=== PATIENT | male | born 1960 | race Caucasian/White ===

== ENCOUNTER 2016-09-25 16:32 | Emergency (ER) | payer OTHER ==
[2016-09-25 16:38] VITALS: BP 129/87; BMI 38.6
--- NOTE | 2016-09-25 17:05 | DR.GENAD ---
HPI - PCP Primary Care Physician: olga - Complaint/Symptoms Chief Complaint Doctors Comments: He takes lasix 20mg daily. He admits to right lower back with pain that radiates down right leg. He is on pain medication. Chief Complaint:: patient stated he has not urinated in 14 hours, kidneys hurting the same time. - Source History Provided: Patient - Mode of Arrival Mode of Arrival: Ambulatory - Timing Onset of Chief Complaint: 09/25/16 PMH - PMH Past Medical History: Yes Past Medical History: Arthritis, COPD, Coronary Artery Disease, Diabetes, Dyslipidemia, Hypertension Past Surgical History: Yes Surgical History: Angioplasty/Stents, CABG/Valve Surgery - Family History History of Family Medical Conditions: No - Social History Does patient currently use any type of tobacco product: Yes Have you used tobacco products in the last 12 months: Yes Type of Tobacco Use: Cigarettes How many years tobacco product used: 42 Does any household member use tobacco: No Alcohol Use: None Do you use any recreational Drugs:: No Lives With: Family Lives Where: Home - infectious screening In the last 2 months have you had wt loss of >10#?: NO Have you had fever, night sweats or hemotysis?: No Have you traveled outside the country in the last 6 months?: No Isolation: Standard ROS - Review of Systems Eyes: No Symptoms Reported ENTM: No Symptoms Reported, Hearing Loss Respiratoy: No Symptoms Reported Cardiovascular: No Symptoms Reported Gastrointestinal/Abdominal: No Symptoms Reported Genitourinary: No Symptoms Reported Neurological: No Symptoms Reported Musculoskeletal: No Symptoms Reported Integumentary: No Symptoms Reported Hematologic/Lymphatic: No Symptoms Reported Endocrine: No Symptoms Reported Psychiatric: No Symptoms Reported All Other Systems: Reviewed and Negative PE - Vital Signs Vitals: Temperature 98.6 F Pulse Rate 74 Respiratory Rate 18 Blood Pressure [Right Arm] 191/115 Blood Pressure [Left Arm] 151/92 Blood Pressure 129/87 O2 Sat by Pulse Oximetry 100 - General Limitations: No Limitations General Appearance: Alert, In No Apparent Distress - Head Head Exam: Normal Inspection, Atraumatic - Eyes Eye exam: Normal Appearance, PERRL, EOMI - ENT ENT Exam: Normal Exam External Ear Exam: Normal External Inspection TM/Canal Exam: Bilateral Normal Nose Exam: Normal Nose Exam Mouth Exam: Normal Inspection Throat Exam: Normal Inspection - Neck Neck Exam: Normal Inspection - Chest Chest Inspection: Normal Inspection - Respiratory Respiratory Exam: Normal Lung Sounds Bilat Respiratory Exam: Bilateral Clear to Auscultation - Cardiovascular Cardiovascular Exam: Regular Rate - Abdominal Exam Abdominal Exam: Normal Inspection Abdominal Tenderness: negative: RUQ, RLQ, LUQ, LLQ, Epigastrium, Suprapubic, Diffuse, Mild, Moderate, Severe, Other - Extremities Extremities Exam: Normal Inspection - Back Back Exam: Normal Inspection - Neurologic Neurological Exam: Alert, Oriented X3, CN II-XII Intact - Psychiatric Psychiatric Exam: Normal Affect - Skin Skin Exam: Warm, Dry Course - Reevaluation 1st: Improved ROR - Labs Reviewed Result Diagrams: 09/25/16 17:14 09/25/16 17:14 Laboratory: WBC 17.1 X10^3/uL (3.6-10.0) H 09/25/16 17:14 RBC 4.51 X10^6/uL (4.7-6.0) L 09/25/16 17:14 Hgb 13.8 g/dL (13.5-18.0) 09/25/16 17:14 Hct 41.2 % (42.0-54.0) L 09/25/16 17:14 MCV 91.4 fL (80.0-100.0) 09/25/16 17:14 MCH 30.7 pg (27.0-34.0) 09/25/16 17:14 MCHC 33.6 g/dL (33.0-35.0) 09/25/16 17:14 RDW 16.3 % (11.6-16.5) 09/25/16 17:14 Plt Count 196 X10^3/uL (150.0-450.0) 09/25/16 17:14 MPV 8.2 fL (7.4-11.0) 09/25/16 17:14 Neut % 59.4 % (42.0-75.0) 09/25/16 17:14 Lymph % 16.6 % (21.0-51.0) L 09/25/16 17:14 [place] % 5.8 % (0.0-13.0) 09/25/16 17:14 Eos % 17.7 % (0.9-2.9) H 09/25/16 17:14 Baso % 0.5 % (0.2-1.0) 09/25/16 17:14 Neut # 10.2 x10^3/uL (2.2-4.8) H 09/25/16 17:14 Lymph # 2.8 X10^3/uL (1.3-2.9) 09/25/16 17:14 [place] # 1.0 x10^3/uL (0.3-0.8) H 09/25/16 17:14 Eos # 3.0 x10^3/uL (0.0-0.2) H 09/25/16 17:14 Baso # 0.1 X10^3/uL (0.0-0.1) 09/25/16 17:14 Absolute Nucleated RBC 0.0 /100WBC 09/25/16 17:14 Sodium 133 mmol/L (136-145) L 09/25/16 17:14 Corrected Sodium TNP 09/25/16 17:14 Potassium 4.2 mmol/L (3.5-5.1) 09/25/16 17:14 Chloride 101 mmol/L (98-107) 09/25/16 17:14 Carbon Dioxide 25.1 mmol/L (21-32) 09/25/16 17:14 BUN 25 mg/dL (7-18) H 09/25/16 17:14 Creatinine 2.54 mg/dL (0.70-1.30) H 09/25/16 17:14 Est GFR (MDRD) Af Amer 34 (>60) L 09/25/16 17:14 Est GFR (MDRD) Non-Af 28 (>60) L 09/25/16 17:14 Glucose 100 mg/dL (65-99) H 09/25/16 17:14 Calcium 8.4 mg/dL (8.5-10.1) L 09/25/16 17:14 Corrected Calcium TNP 09/25/16 17:14 Total Bilirubin 0.30 mg/dL (0.2-1.0) 09/25/16 17:14 AST 18 Units/L (15-37) 09/25/16 17:14 ALT 19 Units/L (12-78) 09/25/16 17:14 Alkaline Phosphatase 58 Units/L (46-116) 09/25/16 17:14 Total Protein 6.5 g/dL (6.4-8.2) 09/25/16 17:14 Albumin 3.4 g/dL (3.4-5.0) 09/25/16 17:14 Globulin 3.1 g/dL (2.5-4.5) 09/25/16 17:14 Albumin/Globulin Ratio 1.1 Ratio (1.1-2.1) 09/25/16 17:14 - XRAY XRAY Interpreted by: Radiologist (Chest: stable cardiomegaly) - Diagnosis Discharge Problem: History of decreased renal function Chronic back pain Qualifiers: Back pain location: back pain in other location Qualified Code(s): M54.9 - Dorsalgia, unspecified; G89.29 - Other chronic pain - Discharge Plan Condition: Stable - Follow ups/Referrals Follow ups/Referrals: KODY ANDERSON [Primary Care Provider] - 3 days - Instructions
[2016-09-25 17:22] LABS: BASOPHILS # (AUTO) 0.1 X10^3/uL (0.0-0.1); BASOPHILS % (AUTO) 0.5 % (0.2-1.0); EOSINOPHILS % (AUTO) 17.7 % (0.9-2.9); HEMATOCRIT 41.2 % (42.0-54.0); HEMOGLOBIN 13.8 g/dL (13.5-18.0); LYMPHOCYTES # (AUTO) 2.8 X10^3/uL (1.3-2.9); LYMPHOCYTES % (AUTO) 16.6 % (21.0-51.0); MEAN CORPUSCULAR HEMOGLOBIN 30.7 pg (27.0-34.0); MEAN CORPUSCULAR HGB CONC 33.6 g/dL (33.0-35.0); MEAN CORPUSCULAR VOLUME 91.4 fL (80.0-100.0); MEAN PLATELET VOLUME 8.2 fL (7.4-11.0); MONOCYTES % (AUTO) 5.8 % (0.0-13.0); NEUTROPHILS # (AUTO) 10.2 x10^3/uL (2.2-4.8); NEUTROPHILS % (AUTO) 59.4 % (42.0-75.0); PLATELET COUNT 196 X10^3/uL (150.0-450.0); RED BLOOD COUNT 4.51 X10^6/uL (4.7-6.0); RED CELL DISTRIBUTION WIDTH 16.3 % (11.6-16.5); WHITE BLOOD COUNT 17.1 X10^3/uL (3.6-10.0)
[2016-09-25 17:32] LABS: ALANINE AMINOTRANSFERASE 19 Units/L (12-78); ALBUMIN 3.4 g/dL (3.4-5.0); ALKALINE PHOSPHATASE 58 Units/L (46-116); ASPARTATE AMINO TRANSFERASE 18 Units/L (15-37); BLOOD UREA NITROGEN 25 mg/dL (7-18); CALCIUM 8.4 mg/dL (8.5-10.1); CARBON DIOXIDE 25.1 mmol/L (21-32); CHLORIDE 101 mmol/L (98-107); CREATININE 2.54 mg/dL (0.70-1.30); GLUCOSE 100 mg/dL (65-99); SODIUM 133 mmol/L (136-145); TOTAL PROTEIN 6.5 g/dL (6.4-8.2); eGFR BLACK RACES 34 (>60); eGFR NON BLACK RACES 28 (>60)
--- NOTE | 2016-09-25 17:36 | RAD ---
HISTORY: Rib pain Study: Two view chest Comparison: 03/17/2016 Findings: Chronic sternotomy changes are noted. The lungs are clear without consolidation, effusion or pneumot horax. Stable cardiomegaly. The soft tissues are unremarkable. IMPRESSION: 1. Stable cardiomegaly without acute findings. Reported By:
== END 2016-09-25 18:17 | disposition home or self-care (01) ==
LOC: ER 16:40
DX: M54.5 Low back pain (principal); G89.29 Other chronic pain; R94.4 Abnormal results of kidney function studies; I51.7 Cardiomegaly
CPT/HCPCS: 36415; 71020; 80053; 85025; 99282

== ENCOUNTER 2016-10-04 10:46 | Day surgery (SDC) | payer OTHER ==
[2016-10-04] MEDS: D5 LR 1000 ML 1,000 ML IV ONE (11:23)
[2016-10-04] MEDS ORDERED: DIPRIVAN VIAL 20 ML ONE ×3 (12:56→13:19)
[2016-10-04] MEDS ORDERED: DIPRIVAN VIAL 10 ML ONE ×2 (13:18→13:46)
[2016-10-04 14:16] VITALS: BP 134/79
== END 2016-10-04 14:25 | disposition home or self-care (01) ==
LOC: SURG1 10:46
PROVIDERS: ATTEND Internal Medicine
PROC: 0DB38ZX Excision of Lower Esophagus, Via Natural or Artificial Opening Endoscopic, Diagnostic (ICD-10-PCS; principal; 2016-10-04 12:00)
PROC: 0DJ08ZZ Inspection of Upper Intestinal Tract, Via Natural or Artificial Opening Endoscopic (ICD-10-PCS; principal; 2016-10-04 12:00)
PROC: 0DBN8ZX Excision of Sigmoid Colon, Via Natural or Artificial Opening Endoscopic, Diagnostic (ICD-10-PCS; principal; 2016-10-04 12:00)
PROC: 0DB68ZX Excision of Stomach, Via Natural or Artificial Opening Endoscopic, Diagnostic (ICD-10-PCS; principal; 2016-10-04 12:00)
PROC: 0DJD8ZZ Inspection of Lower Intestinal Tract, Via Natural or Artificial Opening Endoscopic (ICD-10-PCS; principal; 2016-10-04 12:00)
DX: R10.84 Generalized abdominal pain (principal); K63.3 Ulcer of intestine; K21.9 Gastro-esophageal reflux disease without esophagitis; R10.13 Epigastric pain; K44.9 Diaphragmatic hernia without obstruction or gangrene; K20.8 Other esophagitis; K29.60 Other gastritis without bleeding; K25.9 Gastric ulcer, unspecified as acute or chronic, without hemorrhage or perforation
CPT/HCPCS: A4217; J3490; J7120

== ENCOUNTER 2016-12-30 10:39 | Observation (INO) | payer OTHER ==
[2016-12-30 10:58] VITALS: BMI 39.0
[2016-12-30] MEDS ORDERED: ZOFRAN INJ 4 MG VIAL ONE ×2 (11:28→14:26)
[2016-12-30] MEDS ORDERED: NIFEDIPINE CAP 10 MG ONE (11:28)
[2016-12-30] MEDS ORDERED: LASIX IVP ONE (11:28)
[2016-12-30] MEDS ORDERED: ASPIRIN 81 MG CHEWTAB ONE ×2 (11:28→11:33)
[2016-12-30] MEDS: LASIX IVP SCH ×2 (11:29→20:59)
[2016-12-30] MEDS ORDERED: MORPHINE SULFATE INJ 4 MG ONE (11:29)
[2016-12-30] MEDS ORDERED: MORPHINE SULFATE INJ 4 MG IVP ONE (13:30)
[2016-12-30] MEDS ORDERED: NIFEDIPINE CAP 10 MG PO ONE (13:30)
[2016-12-30] MEDS ORDERED: ZOFRAN INJ 4 MG VIAL IVP ONE ×2 (13:32→14:28)
--- NOTE | 2016-12-30 13:32 | DR.GENAD ---
HPI - PCP Primary Care Physician: Gene - HPI Comment HPI Comment: PATIENT TOOK HOME MED BUT STILL NO RESPONSE. LOW O2 SAT NOTED. ALSO SEVERE HEADACHE. BP ELEVATED. TOOK MEDS BEFORE COMING. - Complaint/Symptoms Chief Complaint Doctors Comments: EDEMA, SOB, CHEST PAIN THAT IS WORSE TODAY. Chief Complaint:: "My legs were retaining fluid. I was also having pain in my chest and accross the top of my head and in my legs and my back. I was supposed to do a heart cath in Jan." - Nurses notes reviewed Nurses Notes Review: Yes - Source History Provided: Patient, Family Member - Mode of Arrival Mode of Arrival: Stretcher - Timing Onset of Chief Complaint: 12/30/16 Came on: Gradually - Duration Duration: Constant Duration: Days - Severity Severity: Moderate PMH - PMH Past Medical History: Yes Past Medical History: Arthritis, COPD, Coronary Artery Disease, Diabetes, Dyslipidemia, Hypertension Past Surgical History: Yes Surgical History: Other Past Surgical History Comment: Bypass, Stents x2 - Family History History of Family Medical Conditions: Yes Family Medical History: [place], Hypertension - Social History Does patient currently use any type of tobacco product: Yes Have you used tobacco products in the last 12 months: Yes Type of Tobacco Use: Cigarettes Does any household member use tobacco: No Alcohol Use: None Do you use any recreational Drugs:: No Lives With: Spouse Lives Where: Home - infectious screening In the last 2 months have you had wt loss of >10#?: NO Have you had fever, night sweats or hemotysis?: No Have you traveled outside the country in the last 6 months?: No Isolation: Standard ROS - Review of Systems Constitutional: Weakness, Fatigue. negative: Chills, Fever Eyes: negative: Eye Pain, Discharge ENTM: negative: Ear Pain, Nose Discharge, Nose Congestion, Throat Pain Respiratoy: Productive Cough, Short of Breath, Wheezing Cardiovascular: Chest Pain, Edema Gastrointestinal/Abdominal: Nausea. negative: Abdominal Pain, Diarrhea, Vomiting Genitourinary: No Symptoms Reported. negative: Dysuria, Frequency, Hematuria Neurological: Headache, Weakness, Dizziness Musculoskeletal: Back Pain, Back Integumentary: Change in Color Hematologic/Lymphatic: Easy Bleeding, Easy Bruising Endocrine: No Symptoms Reported All Other Systems: Reviewed and Negative PE - Vital Signs Vitals: Temperature 97.8 F Pulse Rate [Right Brachial] 92 Pulse Rate 79 Respiratory Rate 18 Blood Pressure [Right Arm] 191/115 Blood Pressure [Left Arm] 199/108 Blood Pressure 230/137 O2 Sat by Pulse Oximetry 99 - General Limitations: No Limitations General Appearance: Alert, In Distress - Head Head Exam: Normal Inspection - Eyes Eye exam: Normal Appearance, PERRL, EOMI - ENT ENT Exam: Normal External Ear Exam External Ear Exam: Normal External Inspection TM/Canal Exam: Bilateral Normal Nose Exam: Normal Nose Exam Mouth Exam: Normal Inspection Throat Exam: Normal Inspection - Neck Neck Exam: Normal Inspection, Trachea Midline - Chest Chest Inspection: Symmetric Chest Wall Rise - Respiratory Respiratory Exam: Normal Lung Sounds Bilat Respiratory Exam: Bilateral Wheezing, Bilateral Rales, Bilateral Rhonchi, Upper Wheezing, Upper Rhonchi, Lower Wheezing, Lower Rales, Lower Rhonchi - Cardiovascular Cardiovascular Exam: Regular Rate, Normal Rhythm, Normal Heart Sounds - Abdominal Exam Abdominal Exam: Normal Bowel Sounds, Soft. negative: Tenderness - Extremities Extremities Exam: Edema - Back Back Exam: Normal Inspection - Neurologic Neurological Exam: Alert, Oriented X3 - Skin Skin Exam: Erythema MDM - Additional Information Additional Information Obtained From: Family - Differential Diagnosis Differential Diagnosis: CHF, PNEUMONIA, PE, BRONCHITIS Course - Treatment Treatment: SEE ORDERS - Reevaluation 1st: Improved (WITH IV LASIX.) - Education/Counseling Education/Counseling: Patient, Family, Education Educated On: Treatment, Diagnosis, Needs for Follow Up ROR - Labs Reviewed Laboratory Results Reviewed?: Yes Result Diagrams: 12/31/16 04:00 12/31/16 04:00 Laboratory: WBC 12.2 X10^3/uL (3.6-10.0) H 12/30/16 10:55 RBC 4.87 X10^6/uL (4.7-6.0) 12/30/16 10:55 Hgb 14.4 g/dL (13.5-18.0) 12/30/16 10:55 Hct 42.9 % (42.0-54.0) 12/30/16 10:55 MCV 88.2 fL (80.0-100.0) 12/30/16 10:55 MCH 29.6 pg (27.0-34.0) 12/30/16 10:55 MCHC 33.6 g/dL (33.0-35.0) 12/30/16 10:55 RDW 16.8 % (11.6-16.5) H 12/30/16 10:55 Plt Count 253 X10^3/uL (150.0-450.0) 12/30/16 10:55 MPV 9.2 fL (7.4-11.0) 12/30/16 10:55 Neut % 56.6 % (42.0-75.0) 12/30/16 10:55 Lymph % 30.3 % (21.0-51.0) 12/30/16 10:55 [place] % 9.9 % (0.0-13.0) 12/30/16 10:55 Eos % 1.8 % (0.9-2.9) 12/30/16 10:55 Baso % 1.4 % (0.2-1.0) H 12/30/16 10:55 Neut # 6.9 x10^3/uL (2.2-4.8) H 12/30/16 10:55 Lymph # 3.7 X10^3/uL (1.3-2.9) H 12/30/16 10:55 [place] # 1.2 x10^3/uL (0.3-0.8) H 12/30/16 10:55 Eos # 0.2 x10^3/uL (0.0-0.2) 12/30/16 10:55 Baso # 0.2 X10^3/uL (0.0-0.1) H 12/30/16 10:55 Absolute Nucleated RBC 0.0 /100WBC 12/30/16 10:55 INR Target Range - 12/30/16 10:55 INR 0.93 (0.8-1.3) 12/30/16 10:55 PTT 26.9 SECONDS (22.9-36.5) 12/30/16 10:55 PTT Comment - 12/30/16 10:55 Sodium 143 mmol/L (136-145) 12/30/16 10:55 Corrected Sodium 143 mmol/L (136-145) 12/30/16 10:55 Potassium 3.6 mmol/L (3.5-5.1) 12/30/16 10:55 Chloride 107 mmol/L (98-107) 12/30/16 10:55 Carbon Dioxide 27.6 mmol/L (21-32) 12/30/16 10:55 BUN 18 mg/dL (7-18) 12/30/16 10:55 Creatinine 1.44 mg/dL (0.70-1.30) H 12/30/16 10:55 Est GFR (MDRD) Af Amer > 60 (>60) 12/30/16 10:55 Est GFR (MDRD) Non-Af 54 (>60) L 12/30/16 10:55 Glucose 115 mg/dL (65-99) H 12/30/16 10:55 Calcium 8.9 mg/dL (8.5-10.1) 12/30/16 10:55 Creatine Kinase 115 Units/L (39-308) 12/30/16 10:55 CK-MB (CK-2) 2.3 ng/mL (0-4.0) 12/30/16 10:55 CK/CKMB % Calc 2.0 % (<4) 12/30/16 10:55 Troponin I 0.08 ng/mL (0-1.5) 12/30/16 10:55 B-Natriuretic Peptide 122 pg/mL (0-79) H 12/30/16 10:55 Specimen Type Clean catch urine 12/30/16 11:19 Urine Color Yellow (YELLOW) 12/30/16 11:19 Urine Appearance Hazy (CLEAR) 12/30/16 11:19 Urine pH 6.5 (5.0 - 8.0) 12/30/16 11:19 Ur Specific [place] 1.010 (1.000-1.030) 12/30/16 11:19 Urine Protein 4+ (NEGATIVE) 12/30/16 11:19 Urine Glucose (UA) Negative (NEGATIVE) 12/30/16 11:19 Urine Ketones Negative (NEGATIVE) 12/30/16 11:19 Urine Occult Blood Negative (NEGATIVE) 12/30/16 11:19 Urine Nitrite Negative (NEGATIVE) 12/30/16 11:19 Urine Bilirubin Negative (NEGATIVE) 12/30/16 11:19 Urine Urobilinogen Normal (NORMAL) 12/30/16 11:19 Ur Leukocyte Esterase Negative (NEGATIVE) 12/30/16 11:19 Urine RBC 0-1 /HPF (NEGATIVE) 12/30/16 11:19 Urine WBC 0-1 /HPF (NEGATIVE) 12/30/16 11:19 Ur Squamous Epith Cells Rare /HPF (NEGATIVE) 12/30/16 11:19 Urine Bacteria Negative /HPF (NEGATIVE) 12/30/16 11:19 Ur Culture Indicated? No/not indicated 12/30/16 11:19 - XRAY XRAY Interpreted by: Radiologist XRAY Findings: REPORT DISCUSS WITH PATIENT. - EKG Rhythm: NSR (EKG NOTED) - Diagnosis Discharge Problem: CHD (congenital heart disease), Respiratory distress Hypertension Qualifiers: Hypertension type: essential hypertension Qualified Code(s): I10 - Essential ( primary) hypertension - Discharge Plan Disposition: ADMITTED INPATIENT Condition: Stable - Follow ups/Referrals - Instructions
--- NOTE | 2016-12-30 13:37 | CT ---
CT brain without contrast Indication: Headache Comparison: None available Technique: Multiple axial images of the brain were obtained from the skull base to the vertex without administra tion of IV contrast. Coronal and sagittal images were also provided. Radiation dose reduction techniques were performed utilizing adjustment for MA/kVP based on patient body size. Findings: No acute intraparenchymal hemorrhage or mass can be identified. No extra-axial fluid collections are seen. No alteration in the attenuation of the brain parenchyma can be identified to suggest acute o r subacute ischemic change. The ventricular system is symmetric and nondilated. The extracranial st ructures are grossly unremarkable. IMPRESSION: 1. No acute intracranial process is identified. Reported By:
[2016-12-30 13:48] LABS: BASOPHILS # (AUTO) 0.2 X10^3/uL (0.0-0.1); BASOPHILS % (AUTO) 1.4 % (0.2-1.0); BLOOD UREA NITROGEN 18 mg/dL (7-18); CALCIUM 8.9 mg/dL (8.5-10.1); CARBON DIOXIDE 27.6 mmol/L (21-32); CHLORIDE 107 mmol/L (98-107); COR NA(FOR HYPERGLY) 143 mmol/L (136-145); CREATINE KINASE 115 Units/L (39-308); CREATINE KINASE MB 2.3 ng/mL (0-4.0); CREATININE 1.44 mg/dL (0.70-1.30); EOSINOPHILS # (AUTO) 0.2 x10^3/uL (0.0-0.2); EOSINOPHILS % (AUTO) 1.8 % (0.9-2.9); HEMATOCRIT 42.9 % (42.0-54.0); HEMOGLOBIN 14.4 g/dL (13.5-18.0); LYMPHOCYTES # (AUTO) 3.7 X10^3/uL (1.3-2.9); LYMPHOCYTES % (AUTO) 30.3 % (21.0-51.0); MEAN CORPUSCULAR HEMOGLOBIN 29.6 pg (27.0-34.0); MEAN CORPUSCULAR HGB CONC 33.6 g/dL (33.0-35.0); MEAN CORPUSCULAR VOLUME 88.2 fL (80.0-100.0); MEAN PLATELET VOLUME 9.2 fL (7.4-11.0); MONOCYTES # (AUTO) 1.2 x10^3/uL (0.3-0.8); MONOCYTES % (AUTO) 9.9 % (0.0-13.0); NEUTROPHILS # (AUTO) 6.9 x10^3/uL (2.2-4.8); NEUTROPHILS % (AUTO) 56.6 % (42.0-75.0); PLATELET COUNT 253 X10^3/uL (150.0-450.0); RED BLOOD COUNT 4.87 X10^6/uL (4.7-6.0); RED CELL DISTRIBUTION WIDTH 16.8 % (11.6-16.5); SODIUM 143 mmol/L (136-145); TROPONIN I 0.08 ng/mL (0-1.5); WHITE BLOOD COUNT 12.2 X10^3/uL (3.6-10.0); eGFR BLACK RACES > 60 (>60); eGFR NON BLACK RACES 54 (>60)
[2016-12-30 13:49] LABS: B-TYPE NATRIURETIC PEPTIDE 122 pg/mL (0-79)
[2016-12-30 13:52] LABS: APPEARANCE,URINE HAZY (CLEAR); BLOOD/HEMOGLOBIN,URINE NEGATIVE (NEGATIVE); COLOR,URINE YELLOW (YELLOW); GLUCOSE, URINE NEGATIVE (NEGATIVE); KETONES,URINE NEGATIVE (NEGATIVE); PH,URINE 6.5 (5.0 - 8.0)
[2016-12-30 13:53] LABS: BACTERIA,URINE NEGATIVE /HPF (NEGATIVE); BILIRUBIN,URINE NEGATIVE (NEGATIVE); LEUKOCYTE ESTERASE ,URINE NEGATIVE (NEGATIVE); NITRITES,URINE NEGATIVE (NEGATIVE); PROTEIN,URINE 4+ (NEGATIVE); RBC,URINE 0-1 /HPF (NEGATIVE); SQUAMOUS EPITHELIAL CELL,UR RARE /HPF (NEGATIVE); UROBILINOGEN,URINE NORMAL (NORMAL)
--- NOTE | 2016-12-30 13:58 | RAD ---
HISTORY: Shortness of breath Study: Chest AP portable Comparison: September 25, 2016 Findings: The patient is status post median sternotomy and CABG. The heart remains enlarged. Pulmonary venous c ongestion is present. No interstitial or alveolar pulmonary edema, alveolar infiltrates, or pleural e ffusions are identified. The bony thorax is unremarkable. IMPRESSION: Cardiomegaly with pulmonary venous congestion. No infiltrates Reported By:
[2016-12-30] MEDS ORDERED: ASPIRIN 81 MG CHEWTAB PO SCH (14:00)
[2016-12-30] MEDS ORDERED: DILAUDID INJ IVP ONE (14:20)
[2016-12-30] MEDS ORDERED: DILAUDID INJ ONE (14:22)
[2016-12-30] MEDS ORDERED: ROCEPHIN 1 GM IV PREMIX * OUT OF STOCK 50 ML IV ONE (14:41)
[2016-12-30] MEDS ORDERED: ROCEPHIN VIAL 1 GM 1 GM in NS 50 ML IV + SPIKE MINIBAG* 50 ML IV ONE (14:42)
[2016-12-30] MEDS ORDERED: CATAPRES TAB 0.2 MG PO ONE (16:33)
[2016-12-30] MEDS ORDERED: CATAPRES TAB 0.2 MG ONE (16:35)
[2016-12-30] MEDS: NICODERM PATCH 21 MG/24 HR TD SCH (18:11)
[2016-12-30 18:45] LABS: CKMB % 1.6 % (<4); CREATINE KINASE MB 1.8 ng/mL (0-4.0); TROPONIN I 0.08 ng/mL (0-1.5)
[2016-12-30] MEDS: NORCO 10/325 TAB PO PRN (20:59)
[2016-12-31 01:13] LABS: CREATINE KINASE MB 2.3 ng/mL (0-4.0); TROPONIN I 0.06 ng/mL (0-1.5)
[2016-12-31] MEDS: MORPHINE SULFATE INJ 2 MG INJ IVP PRN ×3 (01:14→11:08)
[2016-12-31] MEDS: VALIUM PO PRN ×3 (01:15→18:30)
[2016-12-31] MEDS ORDERED: CATAPRES TAB 0.2 MG PO ONE (03:46)
[2016-12-31 05:21] LABS: BASOPHILS # (AUTO) 0.1 X10^3/uL (0.0-0.1); BASOPHILS % (AUTO) 0.6 % (0.2-1.0); EOSINOPHILS # (AUTO) 0.3 x10^3/uL (0.0-0.2); EOSINOPHILS % (AUTO) 2.6 % (0.9-2.9); HEMATOCRIT 42.4 % (42.0-54.0); HEMOGLOBIN 14.4 g/dL (13.5-18.0); LYMPHOCYTES # (AUTO) 3.1 X10^3/uL (1.3-2.9); LYMPHOCYTES % (AUTO) 29.4 % (21.0-51.0); MEAN CORPUSCULAR HEMOGLOBIN 30.1 pg (27.0-34.0); MEAN CORPUSCULAR HGB CONC 33.9 g/dL (33.0-35.0); MEAN CORPUSCULAR VOLUME 88.6 fL (80.0-100.0); MEAN PLATELET VOLUME 9.3 fL (7.4-11.0); MONOCYTES % (AUTO) 9.4 % (0.0-13.0); NEUTROPHILS # (AUTO) 6.1 x10^3/uL (2.2-4.8); PLATELET COUNT 247 X10^3/uL (150.0-450.0); RED BLOOD COUNT 4.79 X10^6/uL (4.7-6.0); RED CELL DISTRIBUTION WIDTH 16.3 % (11.6-16.5); WHITE BLOOD COUNT 10.5 X10^3/uL (3.6-10.0)
[2016-12-31 05:28] LABS: ALANINE AMINOTRANSFERASE 20 Units/L (12-78); ALKALINE PHOSPHATASE 60 Units/L (46-116); ASPARTATE AMINO TRANSFERASE 19 Units/L (15-37); BLOOD UREA NITROGEN 17 mg/dL (7-18); CALCIUM 8.6 mg/dL (8.5-10.1); CARBON DIOXIDE 30.6 mmol/L (21-32); CHLORIDE 102 mmol/L (98-107); COR CA(FOR HYPOALB) 9.4 mg/dL (8.5-10.1); COR NA(FOR HYPERGLY) 141 mmol/L (136-145); CREATININE 1.43 mg/dL (0.70-1.30); MAGNESIUM 1.6 mg/dL (1.7-2.9); SODIUM 139 mmol/L (136-145); TOTAL PROTEIN 6.4 g/dL (6.4-8.2); eGFR BLACK RACES > 60 (>60); eGFR NON BLACK RACES 54 (>60)
[2016-12-31] MEDS: NICODERM PATCH 21 MG/24 HR TD SCH (09:15)
[2016-12-31] MEDS: LASIX IVP SCH ×2 (09:16→22:24)
[2016-12-31] MEDS: ECOTRIN TAB 325 MG PO SCH (09:16)
[2016-12-31] MEDS: NORCO 10/325 TAB PO PRN ×2 (09:20→18:30)
[2016-12-31] MEDS ORDERED: NORCO 10/325 TAB PO PRN (12:11)
[2016-12-31] MEDS ORDERED: PATIENT'S HOME MEDICATION (Escitalopram Oxalate [Lexapro 20 Mg] 1 TAB) PO SCH (12:15)
[2016-12-31] MEDS ORDERED: NexIUM PO SCH (13:00)
--- NOTE | 2016-12-31 13:33 | DR.H&P ---
H&P - History & Physical for Day of: H&P Date: 12/30/16 - Chief Complaint Chief Complaint: cp, alcaraz, elevated blood presssure, sob - Allergies Allergies/Adverse Reactions: Allergies Allergy/AdvReac Type Severity Reaction Status Date / Time methylprednisolone Allergy Verified 12/30/16 10:41 [From Solu-Medrol] lorazepam [From Ativan] AdvReac Severe Verified 12/31/16 12:23 - History of Present Illness History of Present Illness: patient is a 56-year-old white male who is an ER admission after presenting with complaints of severe headache chest pain and shortness of breath. Patient has a history of elevated blood pressure, diabetes , hypertension and coronary artery disease. Patient states he was set up for an outpatient catheterization for January 14.. Patient states he has taken all prescription medications as prescribed and continues with elevated blood pressure. Patient admitted for further evaluation, treatment of COPD exacerbation and serial cardiac enzymes. We'll resume home medications respiratory consult. - Past Medical History Past Medical History: Arthritis, COPD, Coronary Artery Disease, Diabetes, Dyslipidemia, Hypertension - Past Surgical History Surgical History: Other - Family History Family Medical History: [place], Hypertension - Social History Does patient currently use any type of tobacco product: Yes Have you used tobacco products in the last 12 months: Yes Type of Tobacco Use: Cigarettes How many years tobacco product used: 45 Does any household member use tobacco: No Alcohol Use: None Drug Use: Prescription Drugs - Medications Home Medications: Escitalopram Oxalate [Lexapro 20 mg] 1 tab PO DAILY 12/30/16 [History Confirmed 12/30/16] Lisinopril/Hydrochlorothiazide [Lisinopril-Hctz 20-25 mg Tab] 1 tab PO DAILY [History Confirmed 12/30/16] - Review of Systems Constitutional: No Symptoms Reported Eyes: No Symptoms Reported ENT: No Symptoms Reported Respiratory: Shortness of Breath, SOB with Excertion, Wheezing Cardiovascular: Chest Pain, Edema Gastrointestinal: Nausea Genitourinary: No Symptoms Reported Musculoskeletal: Back Pain, Leg Pain Skin: No Symptoms Reported Neurological: Other (alcaraz) - Physical Exam Vital Signs: Temperature 97.8 F Pulse Rate [Right Brachial] 68 Pulse Rate 79 Respiratory Rate 20 Blood Pressure [Right Arm] 162/85 Blood Pressure [Left Arm] 162/93 Blood Pressure 230/137 O2 Sat by Pulse Oximetry 93 Oriented: Normal Eyes: Normal Ear: Normal Nose: Normal Throat: Normal Respiratory: Diminished Throughout Cardiovascular: Normal, Edema : Normal Auscultation: Bowel Sounds: Normal Palpation: Normal Tenderness: Epigastric Skin: Normal Musculoskeletal: Right, Left, Shoulder, Hip, Knee, Leg, Back:Thoracic, Back: Lumbar Psychiatric: Anxiety Affect: Anxious Speech Pattern: Clear, Appropriate - Assessment/Plan (1) Chest pain Qualifiers: Chest pain type: precordial chest pain Qualified Code(s): R07.2 - Precordial pain Status: Acute Plan: admit, serial ce and ekg. resp therapy, supplemental o2. bp and lipid control, blood sugar managemenet. resume home meds (2) Arthritis Status: Acute (3) Hypertension Qualifiers: Hypertension type: essential hypertension Qualified Code(s): I10 - Essential (primary) hypertension Status: Acute (4) CAD (coronary artery disease) Status: Chronic (5) Diabetes mellitus, type II Status: Chronic (6) Hyperlipemia Status: Chronic
[2016-12-31] MEDS ORDERED: LEXAPRO ONE (14:06)
[2016-12-31] MEDS: PLAVIX PO SCH (14:18)
[2016-12-31] MEDS: PROTONIX INJ 40 MG VIAL IVP SCH (14:18)
[2016-12-31] MEDS: LYRICA CAP 150 MG PO SCH ×2 (14:18→20:57)
[2016-12-31] MEDS: LEXAPRO PO SCH (14:19)
[2016-12-31] MEDS: ZESTORETIC 20/25 MG PO SCH (14:19)
[2016-12-31] MEDS: DILAUDID INJ IVP PRN ×2 (14:19→22:23)
[2016-12-31] MEDS: LOPRESSOR TAB 50 MG PO SCH (14:19)
[2016-12-31] MEDS: CRESTOR TAB 10 MG PO SCH (14:19)
[2016-12-31] MEDS ORDERED: DUONEB 0.5 MG/3 MG NEB PRN (16:14)
[2016-12-31] MEDS ORDERED: ZOFRAN INJ 4 MG VIAL IVP PRN (20:00)
[2017-01-01] MEDS: NORCO 10/325 TAB PO PRN ×3 (01:12→21:41)
[2017-01-01] MEDS: VALIUM PO PRN ×3 (02:34→21:42)
[2017-01-01 05:36] LABS: BASOPHILS # (AUTO) 0.1 X10^3/uL (0.0-0.1); BASOPHILS % (AUTO) 0.7 % (0.2-1.0); EOSINOPHILS # (AUTO) 0.3 x10^3/uL (0.0-0.2); EOSINOPHILS % (AUTO) 3.2 % (0.9-2.9); HEMATOCRIT 44.8 % (42.0-54.0); HEMOGLOBIN 15.2 g/dL (13.5-18.0); LYMPHOCYTES # (AUTO) 3.4 X10^3/uL (1.3-2.9); LYMPHOCYTES % (AUTO) 35.9 % (21.0-51.0); MEAN CORPUSCULAR HEMOGLOBIN 30.4 pg (27.0-34.0); MEAN CORPUSCULAR HGB CONC 33.9 g/dL (33.0-35.0); MEAN CORPUSCULAR VOLUME 89.7 fL (80.0-100.0); MEAN PLATELET VOLUME 9.2 fL (7.4-11.0); MONOCYTES # (AUTO) 1.3 x10^3/uL (0.3-0.8); MONOCYTES % (AUTO) 14.1 % (0.0-13.0); NEUTROPHILS # (AUTO) 4.4 x10^3/uL (2.2-4.8); NEUTROPHILS % (AUTO) 46.1 % (42.0-75.0); PLATELET COUNT 246 X10^3/uL (150.0-450.0); RED CELL DISTRIBUTION WIDTH 16.3 % (11.6-16.5); WHITE BLOOD COUNT 9.5 X10^3/uL (3.6-10.0)
[2017-01-01 05:53] LABS: ALANINE AMINOTRANSFERASE 26 Units/L (12-78); ALBUMIN 3.1 g/dL (3.4-5.0); ALKALINE PHOSPHATASE 69 Units/L (46-116); ASPARTATE AMINO TRANSFERASE 24 Units/L (15-37); BLOOD UREA NITROGEN 14 mg/dL (7-18); CALCIUM 8.7 mg/dL (8.5-10.1); CARBON DIOXIDE 33.6 mmol/L (21-32); CHLORIDE 99 mmol/L (98-107); COR CA(FOR HYPOALB) 9.4 mg/dL (8.5-10.1); CREATININE 1.27 mg/dL (0.70-1.30); SODIUM 137 mmol/L (136-145); TOTAL PROTEIN 6.9 g/dL (6.4-8.2); eGFR BLACK RACES > 60 (>60); eGFR NON BLACK RACES > 60 (>60)
[2017-01-01] MEDS: DILAUDID INJ IVP PRN ×2 (06:13→14:53)
[2017-01-01] MEDS ORDERED: LEXAPRO ONE (08:50)
--- NOTE | 2017-01-01 09:20 | RAD ---
HISTORY: Chest pain Study: Chest AP portable Comparison: December 30, 2016 Findings: The trachea is midline. The cardiac silhouette is enlarged. Mild pulmonary venous congestion is pres ent.. The lungs are clear without focal infiltrate or effusion. The bony thorax is unremarkable. T he patient is status post median sternotomy. IMPRESSION: 1. Cardiomegaly with mild pulmonary venous congestion. 2. No infiltrates Reported By:
[2017-01-01] MEDS: PROTONIX INJ 40 MG VIAL IVP SCH (09:46)
[2017-01-01] MEDS: LASIX IVP SCH ×3 (09:46→21:41)
[2017-01-01] MEDS: LYRICA CAP 150 MG PO SCH ×2 (09:47→21:41)
[2017-01-01] MEDS: LOPRESSOR TAB 50 MG PO SCH (09:47)
[2017-01-01] MEDS: LEXAPRO PO SCH (09:47)
[2017-01-01] MEDS: PLAVIX PO SCH (09:47)
[2017-01-01] MEDS: ECOTRIN TAB 325 MG PO SCH (09:47)
[2017-01-01] MEDS: NICODERM PATCH 21 MG/24 HR TD SCH (09:48)
[2017-01-01] MEDS: ZESTORETIC 20/25 MG PO SCH (09:48)
[2017-01-01] MEDS: CRESTOR TAB 10 MG PO SCH (09:48)
[2017-01-01] MEDS: PULMICORT NEB TX 0.5 MG NEB SCH ×2 (10:26→20:21)
[2017-01-01] MEDS: ZITHROMAX INJ 500 MG VIAL 500 MG in NS 250 ML IV 250 ML IV SCH ×2 (10:48→11:32)
[2017-01-01] MEDS ORDERED: NS 250 ML IV 250 ML IV ONE (11:27)
[2017-01-01] MEDS: DUONEB 0.5 MG/3 MG NEB PRN ×2 (12:08→20:21)
[2017-01-01 17:30] LABS: CKMB % 0.8 % (<4); TROPONIN I 0.04 ng/mL (0-1.5)
--- NOTE | 2017-01-01 22:34 | CT ---
CT head without contrast Indication: Severe headache Technique: Axial images from the skullbase to the vertex without contrast. Coronal and sagittal refor mats provided. Comparison: December 30, 2016. Findings: There is no acute intracranial hemorrhage, mass or mass effect. No extra-axial fluid collec tion identified. Ventricles and sulci are normal with minimal atrophic change noted. No abnormal area of hypoattenuati on to suggest large infarct seen. No osseous abnormality seen. Paranasal sinuses and mastoid air cell s are clear. Impression: 1. No acute intracranial hemorrhage. 2. No convincing large subacute infarction. 3. If there is high clinical suspicion for infarction, and it would make a clinical difference to rodney gnose stroke now, MRI is most sensitive and specific absent contraindication. Reported By:
[2017-01-02 06:13] LABS: BASOPHILS % (AUTO) 0.5 % (0.2-1.0); EOSINOPHILS # (AUTO) 0.3 x10^3/uL (0.0-0.2); EOSINOPHILS % (AUTO) 3.5 % (0.9-2.9); HEMATOCRIT 42.8 % (42.0-54.0); HEMOGLOBIN 14.5 g/dL (13.5-18.0); LYMPHOCYTES # (AUTO) 3.1 X10^3/uL (1.3-2.9); LYMPHOCYTES % (AUTO) 34.8 % (21.0-51.0); MEAN CORPUSCULAR HEMOGLOBIN 30.1 pg (27.0-34.0); MEAN CORPUSCULAR HGB CONC 33.9 g/dL (33.0-35.0); MEAN CORPUSCULAR VOLUME 88.7 fL (80.0-100.0); MEAN PLATELET VOLUME 9.4 fL (7.4-11.0); MONOCYTES # (AUTO) 1.1 x10^3/uL (0.3-0.8); NEUTROPHILS # (AUTO) 4.3 x10^3/uL (2.2-4.8); NEUTROPHILS % (AUTO) 48.2 % (42.0-75.0); PLATELET COUNT 232 X10^3/uL (150.0-450.0); RED BLOOD COUNT 4.82 X10^6/uL (4.7-6.0); RED CELL DISTRIBUTION WIDTH 15.9 % (11.6-16.5); WHITE BLOOD COUNT 8.8 X10^3/uL (3.6-10.0)
[2017-01-02 06:34] LABS: ALANINE AMINOTRANSFERASE 29 Units/L (12-78); ALKALINE PHOSPHATASE 75 Units/L (46-116); ASPARTATE AMINO TRANSFERASE 23 Units/L (15-37); BLOOD UREA NITROGEN 12 mg/dL (7-18); CALCIUM 8.7 mg/dL (8.5-10.1); CARBON DIOXIDE 32.5 mmol/L (21-32); CHLORIDE 100 mmol/L (98-107); COR CA(FOR HYPOALB) 9.5 mg/dL (8.5-10.1); COR NA(FOR HYPERGLY) 138 mmol/L (136-145); CREATININE 1.18 mg/dL (0.70-1.30); SODIUM 137 mmol/L (136-145); TOTAL PROTEIN 6.4 g/dL (6.4-8.2); eGFR BLACK RACES > 60 (>60); eGFR NON BLACK RACES > 60 (>60)
[2017-01-02] MEDS ORDERED: LEXAPRO ONE (08:32)
[2017-01-02] MEDS ORDERED: DILAUDID INJ IVP NR (08:39)
[2017-01-02] MEDS ORDERED: NORVASC TAB 5 MG PO SCH (09:00)
[2017-01-02] MEDS: ZITHROMAX INJ 500 MG VIAL 500 MG in NS 250 ML IV 250 ML IV SCH (09:54)
[2017-01-02] MEDS: PROTONIX INJ 40 MG VIAL IVP SCH (09:54)
[2017-01-02] MEDS: ZESTORETIC 20/25 MG PO SCH (09:55)
[2017-01-02] MEDS: CRESTOR TAB 10 MG PO SCH (09:56)
[2017-01-02] MEDS: LOPRESSOR TAB 50 MG PO SCH (09:56)
[2017-01-02] MEDS: ECOTRIN TAB 325 MG PO SCH (09:56)
[2017-01-02] MEDS: NICODERM PATCH 21 MG/24 HR TD SCH (09:56)
[2017-01-02] MEDS: LYRICA CAP 150 MG PO SCH (09:56)
[2017-01-02] MEDS: PLAVIX PO SCH (09:56)
[2017-01-02] MEDS: VALIUM PO PRN ×2 (09:56→16:56)
[2017-01-02] MEDS: LEXAPRO PO SCH (09:57)
[2017-01-02] MEDS: NORCO 10/325 TAB PO PRN ×2 (09:57→16:30)
[2017-01-02] MEDS: LASIX IVP SCH (09:57)
[2017-01-02] MEDS: PULMICORT NEB TX 0.5 MG NEB SCH (11:56)
[2017-01-02 16:43] VITALS: BP 134/61
== END 2017-01-02 16:56 | disposition short-term general hospital (02) ==
LOC: ER 10:45 → MED/SURG 16:36
PROVIDERS: ADMIT Internal Medicine; ATTEND Internal Medicine
DX: R07.2 Precordial pain (principal); I50.9 Heart failure, unspecified; J44.1 Chronic obstructive pulmonary disease with (acute) exacerbation; R51 Headache; I10 Essential (primary) hypertension; R06.02 Shortness of breath; E11.65 Type 2 diabetes mellitus with hyperglycemia; I25.10 Atherosclerotic heart disease of native coronary artery without angina pectoris; E78.2 Mixed hyperlipidemia; M13.89 Other specified arthritis, multiple sites; M54.5 Low back pain; F41.8 Other specified anxiety disorders; I73.89 Other specified peripheral vascular diseases; D72.828 Other elevated white blood cell count; R94.4 Abnormal results of kidney function studies; Z79.01 Long term (current) use of anticoagulants
CPT/HCPCS: 36415; 70450; 71010; 80048; 80053; 80307; 81001; 82550; 82553; 83735; 83880; 84484; 85025; 85610; 85730; 93005; 93010; 94640; 94760; 96365; 96374; 96375; 99284; A4216; A4222; C9113; G0378; G0434; J0456; J0696; J1170; J1940; J2270; J2405; J7620; J7626

== ENCOUNTER 2017-03-09 18:49 | Emergency (ER) | payer OTHER ==
[2017-03-09 18:54] VITALS: BP 146/91; BMI 38.9
--- NOTE | 2017-03-09 21:08 | DR.GENAD ---
HPI - PCP Primary Care Physician: olga - HPI Comment HPI Comment: HISTORY BELOW. - Complaint/Symptoms Chief Complaint Doctors Comments: CERVICAL DISC DISEASE. FLARE UP WITH NECK AND LEFT SHOULDER PAIN. HOME MEDICATION DID NOT HELP. NO INJURY REPORTED. Chief Complaint:: patient stated he has a hx of disk problems in his neck and he has been having left shoulder pain. - Nurses notes reviewed Nurses Notes Review: Yes - Source History Provided: Patient - Mode of Arrival Mode of Arrival: Ambulatory - Timing Onset of Chief Complaint: 03/07/17 PMH - PMH Past Medical History: Yes Past Medical History: Arthritis, COPD, Coronary Artery Disease, Diabetes, Dyslipidemia, Hypertension Past Surgical History: Yes Surgical History: Other - Family History History of Family Medical Conditions: Yes Family Medical History: [place], Hypertension - Social History Does patient currently use any type of tobacco product: Yes Have you used tobacco products in the last 12 months: Yes Type of Tobacco Use: Cigarettes How many years tobacco product used: 40 Does any household member use tobacco: Yes Alcohol Use: None Do you use any recreational Drugs:: No Lives With: Family Lives Where: Home - infectious screening In the last 2 months have you had wt loss of >10#?: NO Have you had fever, night sweats or hemotysis?: No Have you traveled outside the country in the last 6 months?: No Isolation: Standard ROS - Review of Systems Constitutional: No Symptoms Reported Eyes: No Symptoms Reported ENTM: No Symptoms Reported Respiratoy: No Symptoms Reported Cardiovascular: No Symptoms Reported Gastrointestinal/Abdominal: No Symptoms Reported Genitourinary: No Symptoms Reported Neurological: No Symptoms Reported Musculoskeletal: Neck Pain, Left, Shoulder Integumentary: No Symptoms Reported Hematologic/Lymphatic: No Symptoms Reported Endocrine: No Symptoms Reported All Other Systems: Reviewed and Negative PE - Vital Signs Vitals: Temperature 98.6 F Pulse Rate 72 Respiratory Rate 18 Blood Pressure [Right Arm] 134/61 Blood Pressure [Left Arm] 135/89 Blood Pressure 146/91 O2 Sat by Pulse Oximetry 98 - General Limitations: No Limitations General Appearance: Alert - Head Head Exam: Normal Inspection - Eyes Eye exam: Normal Appearance - ENT ENT Exam: Normal External Ear Exam External Ear Exam: Normal External Inspection TM/Canal Exam: Bilateral Normal Nose Exam: Normal Nose Exam Mouth Exam: Normal Inspection Throat Exam: Normal Inspection - Neck Neck Exam: Trachea Midline, Tenderness. negative: Meningismus, Lymphadenopathy - Chest Chest Inspection: Symmetric Chest Wall Rise - Respiratory Respiratory Exam: Normal Lung Sounds Bilat Respiratory Exam: Bilateral Clear to Auscultation - Cardiovascular Cardiovascular Exam: Regular Rate, Normal Rhythm, Normal Heart Sounds - Abdominal Exam Abdominal Exam: Normal Bowel Sounds, Soft. negative: Tenderness - Extremities Extremities Exam: Normal Inspection - Back Back Exam: Normal Inspection - Neurologic Neurological Exam: Alert, Oriented X3 - Psychiatric Psychiatric Exam: Normal Affect, Normal Mood - Skin Skin Exam: Normal Color MDM - Differential Diagnosis Differential Diagnosis: NECK PAIN, LEFT SHOULDER PAIN, DJD CERVICAL SPINE Course - Treatment Treatment: SEE ORDERS. IM PAIN MED IN ED. PAIN IMPROVED - Reevaluation 1st: Improved - Education/Counseling Education/Counseling: Patient, Education Educated On: Treatment, Diagnosis, Needs for Follow Up - Diagnosis Discharge Problem: Cervical spine pain DJD (degenerative joint disease) Qualifiers: Osteoarthritis location: spine Spinal region: cervical Spinal osteoarthritis complication: with radiculopathy Qualified Code(s): M47.22 - Other spondylosis with radiculopathy, cervical region - Discharge Plan Disposition: 01 HOME, SELF-CARE Condition: Stable - Follow ups/Referrals Follow ups/Referrals: KODY ANDERSON [Primary Care Provider] - 3 days - Instructions Instructions: Musculoskeletal Pain, Degenerative Disk Disease, Cervical Radiculopathy, [id number] Additional Instructions: RETURN TO ED IF WORSE.
[2017-03-09] MEDS ORDERED: DEMEROL INJ IM ONE (21:25)
[2017-03-09] MEDS ORDERED: ZOFRAN INJ 4 MG VIAL IM ONE (21:25)
[2017-03-09] MEDS ORDERED: ZOFRAN INJ 4 MG VIAL ONE (21:47)
[2017-03-09] MEDS ORDERED: DEMEROL INJ ONE (21:47)
== END 2017-03-09 22:19 | disposition home or self-care (01) ==
LOC: ER 18:58
DX: M47.22 Other spondylosis with radiculopathy, cervical region (principal); M54.2 Cervicalgia
CPT/HCPCS: 96372; 99282; J2175; J2405

== ENCOUNTER → 2017-04-01 | Outpatient (CLI) | payer OTHER ==
[2017-03-09 18:54] VITALS: BP 146/91
--- NOTE | 2017-04-01 13:32 | MRI ---
History: Neck pain and osteoarthritis. Exam: Noncontrast MRI examination of the cervical spine. Technique: Multi sequence multiplanar MRI images of the cervical spine were performed at 1.5 nannette wi thout IV contrast using proton density, T1, and T2 sequencing. Comparison: None available. Findings: There is straightening of the normal cervical lordosis. There is no evidence for acute frac ture or compression deformity. There is no evidence for cord myelomalacia or cord edema. There is no evidence for Chiari malformation. No aggressive bone marrow lesion is seen. There is no evidence for discitis. No abnormal ligamentous signal is appreciated on this examination. At C1-2, there is moderate right-sided osteoarthritis with associated cystic changes seen emanating f rom the C1/C2 articulation which could reflect ganglion formation. This could also reflect subchondra l cysts or bone cyst. This can be better assessed with CT imaging of the cervical spine, as clinicall y indicated. No other C1/2 articulation abnormality is seen. At C2-3, there is no significant disc pathology. There is mild bilateral facet joint DJD which create s [id number] right-sided foraminal narrowing at this level. At C3-4, there is mild to moderate right-sided foraminal narrowing secondary to facet joint osteoarth ritis without evidence for spinal canal stenosis or significant disc pathology. At C4-5, there is no significant disc pathology or foraminal/spinal canal stenosis. At C5-6, there is a broad-based posterior disc osteophyte complex which combines with facet joint DJD to create moderate spinal canal narrowing and moderate to severe right-sided foraminal narrowing/paresh nosis without evident neural impingement at this level. At C6-7, there is a broad-based posterior disc osteophyte complex which combines facet joint DJD to c reate mild spinal canal narrowing and mild bilateral foraminal narrowing. At C7-T1, there is no significant disc pathology or foraminal/spinal canal stenosis. Impression: Degenerative facet joint osteoarthritis creates bilateral foraminal stenosis from C1 thro ugh C7, as discussed above, without evidence for significant disc pathology. C1/2 degenerative change s and cystic changes which can be followed up with C-spine CT imaging. Reported By:
== END ==
LOC: RAD 09:56
PROVIDERS: ATTEND Internal Medicine
DX: M47.892 Other spondylosis, cervical region (principal)
CPT/HCPCS: 72141

== ENCOUNTER 2017-06-28 16:05 | Emergency (ER) | payer OTHER ==
[2017-06-28 16:11] VITALS: BMI 38.9
[2017-06-28] MEDS ORDERED: NITROSTAT SL ONE (16:29)
[2017-06-28] MEDS ORDERED: ASPIRIN ONE (16:30)
[2017-06-28] MEDS ORDERED: NITROSTAT SL PRN (16:33)
[2017-06-28 16:45] LABS: BILIRUBIN,URINE NEGATIVE (NEGATIVE); BLOOD/HEMOGLOBIN,URINE NEGATIVE (NEGATIVE); GLUCOSE, URINE NEGATIVE (NEGATIVE); KETONES,URINE NEGATIVE (NEGATIVE); LEUKOCYTE ESTERASE ,URINE NEGATIVE (NEGATIVE); NITRITES,URINE NEGATIVE (NEGATIVE); PROTEIN,URINE 3+ (NEGATIVE); UROBILINOGEN,URINE NORMAL (NORMAL)
[2017-06-28 16:48] LABS: APPEARANCE,URINE CLEAR (CLEAR); COLOR,URINE YELLOW (YELLOW)
[2017-06-28] MEDS ORDERED: NORCO 5/325 MG TAB PO ONE (16:54)
[2017-06-28] MEDS ORDERED: NORCO 5/325 MG TAB ONE (16:55)
[2017-06-28] MEDS ORDERED: ASPIRIN PO SCH (17:00)
[2017-06-28 17:04] LABS: BACTERIA,URINE NEGATIVE /HPF (NEGATIVE); RBC,URINE NONE SEEN /HPF (NONE SEEN); SQUAMOUS EPITHELIAL CELL,UR RARE /HPF (NEGATIVE)
[2017-06-28 17:07] LABS: BASOPHILS # (AUTO) 0.1 X10^3/uL (0.0-0.1); BASOPHILS % (AUTO) 0.8 % (0.2-1.0); EOSINOPHILS # (AUTO) 0.2 x10^3/uL (0.0-0.2); EOSINOPHILS % (AUTO) 2.3 % (0.9-2.9); HEMATOCRIT 42.6 % (42.0-54.0); HEMOGLOBIN 14.6 g/dL (13.5-18.0); LYMPHOCYTES # (AUTO) 2.6 X10^3/uL (1.3-2.9); LYMPHOCYTES % (AUTO) 24.3 % (21.0-51.0); MEAN CORPUSCULAR HGB CONC 34.1 g/dL (33.0-35.0); MEAN CORPUSCULAR VOLUME 87.9 fL (80.0-100.0); MEAN PLATELET VOLUME 9.2 fL (7.4-11.0); MONOCYTES # (AUTO) 0.8 x10^3/uL (0.3-0.8); MONOCYTES % (AUTO) 7.7 % (0.0-13.0); NEUTROPHILS % (AUTO) 64.9 % (42.0-75.0); PLATELET COUNT 200 X10^3/uL (150.0-450.0); RED BLOOD COUNT 4.85 X10^6/uL (4.7-6.0); RED CELL DISTRIBUTION WIDTH 16.3 % (11.6-16.5); WHITE BLOOD COUNT 10.7 X10^3/uL (3.6-10.0)
[2017-06-28 17:22] LABS: BLOOD UREA NITROGEN 20 mg/dL (7-18); CALCIUM 9.1 mg/dL (8.5-10.1); CARBON DIOXIDE 28.4 mmol/L (21-32); CHLORIDE 105 mmol/L (98-107); COR NA(FOR HYPERGLY) 140 mmol/L (136-145); CREATININE 1.39 mg/dL (0.70-1.30); SODIUM 140 mmol/L (136-145); TROPONIN I 0.03 ng/mL (0-1.5); eGFR BLACK RACES > 60 (>60); eGFR NON BLACK RACES 56 (>60)
[2017-06-28 17:26] LABS: ALANINE AMINOTRANSFERASE 19 Units/L (12-78); ALBUMIN 3.1 g/dL (3.4-5.0); ALKALINE PHOSPHATASE 64 Units/L (46-116); ASPARTATE AMINO TRANSFERASE 15 Units/L (15-37); CKMB % 3.3 % (<4); COR CA(FOR HYPOALB) 9.8 mg/dL (8.5-10.1); CREATINE KINASE 64 Units/L (39-308); CREATINE KINASE MB 2.1 ng/mL (0-4.0); TOTAL PROTEIN 6.6 g/dL (6.4-8.2)
--- NOTE | 2017-06-28 17:35 | RAD ---
Examination: AP chest History: Pain, COPD, hypertension Comparison 01/01/2017 Findings: Marked cardiomegaly now noted. The pulmonary vessels are distended and indistinct with a di ffuse interstitial process throughout both lungs. Sternal wires are present. There is no evidence for pneumothorax or large pleural effusion. Impression: Interval increase in cardiomegaly and pulmonary vascular distention consistent with CHF a nd perivascular pulmonary edema. Reported By:
--- NOTE | 2017-06-28 17:41 | DR.GENAD ---
HPI - PCP Primary Care Physician: olga - Complaint/Symptoms Chief Complaint Doctors Comments: History as stated. Patient reports that he and spouse have been dismissed from the practice of Dr Mills. He denies chest pain but generalized pain from his arthritis of thrity years. He has been on hydrocodone for greather than twenty years and is out of medication. He has not found another addi care provider. Patient also states that he has angina and is out of NTG Chief Complaint:: " Had a appoiment with olga friday to get pain meds been on them for 21 years and was unable to get them and now he is in pain all over" - Source History Provided: Patient - Mode of Arrival Mode of Arrival: Ambulatory - Timing Onset of Chief Complaint: 06/21/17 PMH - PMH Past Medical History: Yes Past Medical History: Arthritis, COPD, Coronary Artery Disease, Diabetes, Dyslipidemia, Hypertension Past Surgical History: Yes Surgical History: Other Past Surgical History Comment: six bypasses - Family History History of Family Medical Conditions: Yes Family Medical History: [place], Hypertension - Social History Does patient currently use any type of tobacco product: Yes Have you used tobacco products in the last 12 months: Yes Type of Tobacco Use: Cigarettes How many years tobacco product used: 50 Does any household member use tobacco: No Alcohol Use: None Do you use any recreational Drugs:: No Lives With: Family Lives Where: Home - infectious screening In the last 2 months have you had wt loss of >10#?: NO Have you had fever, night sweats or hemotysis?: No Have you traveled outside the country in the last 6 months?: No Isolation: Standard ROS - Review of Systems Constitutional: No Symptoms Reported Eyes: No Symptoms Reported ENTM: No Symptoms Reported Respiratoy: No Symptoms Reported Cardiovascular: No Symptoms Reported Gastrointestinal/Abdominal: No Symptoms Reported Genitourinary: No Symptoms Reported Neurological: No Symptoms Reported Musculoskeletal: See HPI, Other (generalized) Integumentary: No Symptoms Reported Hematologic/Lymphatic: No Symptoms Reported Endocrine: No Symptoms Reported Psychiatric: See HPI All Other Systems: Reviewed and Negative PE - Vital Signs Vitals: Temperature 98 F Pulse Rate [Right Brachial] 51 Pulse Rate 63 Respiratory Rate 22 Blood Pressure [Right Arm] 160/92 Blood Pressure [Left Arm] 135/89 Blood Pressure 179/90 O2 Sat by Pulse Oximetry 100 - General Limitations: No Limitations General Appearance: Alert, In No Apparent Distress - Head Head Exam: Normal Inspection, Atraumatic - Eyes Eye exam: Normal Appearance, PERRL, EOMI - ENT ENT Exam: Normal Exam External Ear Exam: Normal External Inspection TM/Canal Exam: Bilateral Normal Nose Exam: Normal Nose Exam Mouth Exam: Normal Inspection Throat Exam: Normal Inspection - Neck Neck Exam: Normal Inspection - Chest Chest Inspection: Normal Inspection - Respiratory Respiratory Exam: Normal Lung Sounds Bilat Respiratory Exam: Bilateral Clear to Auscultation - Cardiovascular Cardiovascular Exam: Regular Rate, Normal Rhythm - Abdominal Exam Abdominal Exam: Normal Inspection Abdominal Tenderness: negative: RUQ, RLQ, LUQ, LLQ, Epigastrium, Suprapubic, Diffuse, Mild, Moderate, Severe, Other - Extremities Extremities Exam: Normal Inspection, Full ROM - Back Back Exam: Normal Inspection, Full ROM - Neurologic Neurological Exam: Alert, Oriented X3, CN II-XII Intact - Psychiatric Psychiatric Exam: Normal Affect - Skin Skin Exam: Warm, Dry, Intact Course - Reevaluation 1st: Improved - Education/Counseling Educated On: Treatment, Diagnosis, Prognosis ROR - Labs Reviewed Result Diagrams: 06/28/17 17:00 06/28/17 17:00 Laboratory: WBC 10.7 X10^3/uL (3.6-10.0) H 06/28/17 17:00 RBC 4.85 X10^6/uL (4.7-6.0) 06/28/17 17:00 Hgb 14.6 g/dL (13.5-18.0) 06/28/17 17:00 Hct 42.6 % (42.0-54.0) 06/28/17 17:00 MCV 87.9 fL (80.0-100.0) 06/28/17 17:00 MCH 30.0 pg (27.0-34.0) 06/28/17 17:00 MCHC 34.1 g/dL (33.0-35.0) 06/28/17 17:00 RDW 16.3 % (11.6-16.5) 06/28/17 17:00 Plt Count 200 X10^3/uL (150.0-450.0) 06/28/17 17:00 MPV 9.2 fL (7.4-11.0) 06/28/17 17:00 Neut % (Auto) 64.9 % (42.0-75.0) 06/28/17 17:00 Lymph % (Auto) 24.3 % (21.0-51.0) 06/28/17 17:00 [place] % (Auto) 7.7 % (0.0-13.0) 06/28/17 17:00 Eos % (Auto) 2.3 % (0.9-2.9) 06/28/17 17:00 Baso % (Auto) 0.8 % (0.2-1.0) 06/28/17 17:00 Neut # (Auto) 7.0 x10^3/uL (2.2-4.8) H 06/28/17 17:00 Lymph # (Auto) 2.6 X10^3/uL (1.3-2.9) 06/28/17 17:00 [place] # (Auto) 0.8 x10^3/uL (0.3-0.8) 06/28/17 17:00 Eos # (Auto) 0.2 x10^3/uL (0.0-0.2) 06/28/17 17:00 Baso # (Auto) 0.1 X10^3/uL (0.0-0.1) 06/28/17 17:00 Absolute Nucleated RBC 0.0 /100WBC 06/28/17 17:00 Sodium 140 mmol/L (136-145) 06/28/17 17:00 Corrected Sodium 140 mmol/L (136-145) 06/28/17 17:00 Potassium 4.7 mmol/L (3.5-5.1) 06/28/17 17:00 Chloride 105 mmol/L (98-107) 06/28/17 17:00 Carbon Dioxide 28.4 mmol/L (21-32) 06/28/17 17:00 BUN 20 mg/dL (7-18) H 06/28/17 17:00 Creatinine 1.39 mg/dL (0.70-1.30) H 06/28/17 17:00 Est GFR (MDRD) Af Amer > 60 (>60) 06/28/17 17:00 Est GFR (MDRD) Non-Af 56 (>60) L 06/28/17 17:00 Glucose 112 mg/dL (65-99) H 06/28/17 17:00 Calcium 9.1 mg/dL (8.5-10.1) 06/28/17 17:00 Corrected Calcium 9.8 mg/dL (8.5-10.1) 06/28/17 17:00 Total Bilirubin 0.20 mg/dL (0.2-1.0) 06/28/17 17:00 AST 15 Units/L (15-37) 06/28/17 17:00 ALT 19 Units/L (12-78) 06/28/17 17:00 Alkaline Phosphatase 64 Units/L (46-116) 06/28/17 17:00 Creatine Kinase 64 Units/L (39-308) 06/28/17 17:00 CK-MB (CK-2) 2.1 ng/mL (0-4.0) 06/28/17 17:00 CK/CKMB % Calc 3.3 % (<4) 06/28/17 17:00 Troponin I 0.03 ng/mL (0-1.5) 06/28/17 17:00 Total Protein 6.6 g/dL (6.4-8.2) 06/28/17 17:00 Albumin 3.1 g/dL (3.4-5.0) L 06/28/17 17:00 Globulin 3.5 g/dL (2.5-4.5) 06/28/17 17:00 Albumin/Globulin Ratio 0.9 Ratio (1.1-2.1) L 06/28/17 17:00 Specimen Type Random urine 06/28/17 16:36 Urine Color Yellow (YELLOW) 06/28/17 16:36 Urine Appearance Clear (CLEAR) 06/28/17 16:36 Urine pH 6.0 (5.0 - 8.0) 06/28/17 16:36 Ur Specific Trade 1.010 (1.000-1.030) 06/28/17 16:36 Urine Protein 3+ (NEGATIVE) 06/28/17 16:36 Urine Glucose (UA) Negative (NEGATIVE) 06/28/17 16:36 Urine Ketones Negative (NEGATIVE) 06/28/17 16:36 Urine Occult Blood Negative (NEGATIVE) 06/28/17 16:36 Urine Nitrite Negative (NEGATIVE) 06/28/17 16:36 Urine Bilirubin Negative (NEGATIVE) 06/28/17 16:36 Urine Urobilinogen Normal (NORMAL) 06/28/17 16:36 Ur Leukocyte Esterase Negative (NEGATIVE) 06/28/17 16:36 Urine RBC None seen /HPF (NONE SEEN) 06/28/17 16:36 Urine WBC Rare /HPF (NONE SEEN) 06/28/17 16:36 Ur Squamous Epith Cells Rare /HPF (NEGATIVE) 06/28/17 16:36 Urine Bacteria Negative /HPF (NEGATIVE) 06/28/17 16:36 Ur Culture Indicated? No/not indicated 06/28/17 16:36 - XRAY XRAY Interpreted by: Radiologist (marked cardiomegaly now noted. The ulmonary vessels are distended and indistinct with a diffuse intersitial process throughout both lungs. There is no evidence for pneumothorax or large pleural effusion.) - Diagnosis Discharge Problem: Cardiomegaly Chronic pain Qualifiers: Chronic pain type: chronic pain syndrome Qualified Code(s): G89.4 - Chronic pain syndrome CHF (congestive heart failure) Qualifiers: Heart failure chronicity: unspecified - Discharge Plan Condition: Stable - Follow ups/Referrals Follow ups/Referrals: NFD,None [Primary Care Provider] - 3 days - Instructions
[2017-06-28] MEDS ORDERED: CATAPRES TAB 0.2 MG PO ONE (17:55)
[2017-06-28] MEDS ORDERED: CATAPRES TAB 0.2 MG ONE (17:56)
[2017-06-28 18:26] VITALS: BP 160/92
== END 2017-06-28 18:56 | disposition home or self-care (01) ==
LOC: ER 16:22
DX: I51.7 Cardiomegaly (principal); I50.9 Heart failure, unspecified; G89.4 Chronic pain syndrome; R94.31 Abnormal electrocardiogram [ECG] [EKG]
CPT/HCPCS: 36415; 71045; 80053; 81001; 82550; 82553; 84484; 85025; 93005; 93010; 99283; A4222